=== PATIENT | female | born 1945 | race Caucasian/White ===

== ENCOUNTER 2019-07-06 03:03 | Emergency (ER) | payer MEDICARE, OTHER ==
[~2019-07-06] VITALS: Ht 165.1 cm; Wt 51.0 kg
--- NOTE | 2019-07-06 04:30 | NUR ---
Assumed care from [facility]. Pt. currently in bed, AOX4, resting comfortable. No needs at this time.
--- NOTE | 2019-07-06 04:34 | NUR ---
Pt. transferred to GI lab by GI woven label designer at this time.
[2019-07-06 04:40] VITALS: BP 127/80
[2019-07-06] MEDS ORDERED: MIDAZolam 5mg/5ml vial ONE (04:41)
[2019-07-06] MEDS ORDERED: fentaNYL/PF 50MCG/1 ML 2ML syringe ONE (04:41)
[2019-07-06 05:32] VITALS: BP 162/66
[2019-07-06] MEDS ORDERED: epiNEPHrine 0.1mg/ml 10ml syringe ONE (05:35)
[2019-07-06 05:42] VITALS: BP 95/53
[2019-07-06 05:52] VITALS: BP 109/51
--- NOTE | 2019-07-06 05:58 | NUR ---
Called family at this time and spoke with Jack to arrange ride back home. Per Jack, she will call pt's son to provide transport for pt.
[2019-07-06 06:02] VITALS: BP 109/45
--- NOTE | 2019-07-06 06:19 | NUR ---
Pt. back to ED room 3 at this time. She is AOX4 with mild lethargy from post sedation/procedure. GI intervention teacher to give full report.
--- NOTE | 2019-07-06 06:22 | NUR ---
Called son "Lucian" re pt and need for transportation back home. Per son, he will be in the ED department in within the next 15 mins.
[2019-07-06 06:30] LABS: BASOPHILS # (AUTO) 0.1 X10'3 (0-0.2); BASOPHILS % (AUTO) 0.5 % (0-1); EOSINOPHILS % (AUTO) 0.3 % (0-6); HEMOGLOBIN 11.9 g/dl (12.0-16.0); LYMPHOCYTES # (AUTO) 1.7 X10'3 (1.1-4.8); LYMPHOCYTES % (AUTO) 15.7 % (21-51); MEAN CORPUSCULAR HEMOGLOBIN 30.2 PG (27.0-31.0); MEAN CORPUSCULAR VOLUME 91.4 FL (78-98); MEAN PLATELET VOLUME 7.1 FL (7.4-10.4); MONOCYTES # (AUTO) 0.7 X10'3 (0-0.9); MONOCYTES % (AUTO) 6.6 % (2-12); NEUTROPHILS # (AUTO) 8.3 X10'3 (1.8-7.7); NEUTROPHILS % (AUTO) 76.9 % (42-75); PLATELET COUNT 234 X10'3 (140-440); RED BLOOD COUNT 3.94 X10'6 (4.20-5.60); RED CELL DISTRIBUTION WIDTH 14.5 % (11.5-14.5); WHITE BLOOD COUNT 10.8 X10'3 (4.5-11.0)
[2019-07-06 06:41] LABS: ALANINE AMINOTRANSFERASE 24 U/L (12-78); ALBUMIN/GLOBULIN RATIO 0.7 (1.1-1.5); ALKALINE PHOSPHATASE 55 IU/L (46-116); ANION GAP 10 (8-16); ASPARTATE AMINO TRANSFERASE 31 U/L (10-37); BILIRUBIN,TOTAL 0.3 MG/DL (0.1-1.0); BLOOD UREA NITROGEN 14 MG/DL (7-18); BUN/CREATININE RATIO 13.1 (6.6-38.0); CALCIUM 8.7 MG/DL (8.5-10.1); CHLORIDE 105 MMOL/L (99-107); CREATININE 1.07 MG/DL (0.40-0.90); GLUCOSE 193 MG/DL (70-104); SODIUM 139 MMOL/L (135-145); TOTAL CARBON DIOXIDE 24.3 MMOL/L (24-32); TOTAL PROTEIN 7.1 G/DL (6.4-8.2); eGFR 50 ML/MIN
[2019-07-06 06:50] LABS: % IRON SATURATION 33 % (11-46); IRON 70 UG/DL (49-151); TOTAL IRON BINDING CAPACITY 212 UG/DL (259-388)
--- NOTE | 2019-07-06 06:53 | NUR ---
Dr. Baker at bedside.
[2019-07-06 06:59] LABS: FERRITIN 115 NG/ML (8-252)
[2019-07-06 07:27] VITALS: BP 114/54
== END 2019-07-06 07:31 | disposition home or self-care (01) ==
LOC: ER 03:04
DX: T17.298A Other foreign object in pharynx causing other injury, initial encounter (principal); J44.9 Chronic obstructive pulmonary disease, unspecified; F32.9 Major depressive disorder, single episode, unspecified; Z98.890 Other specified postprocedural states; Z90.710 Acquired absence of both cervix and uterus; Z60.2 Problems related to living alone; W22.8XXA Striking against or struck by other objects, initial encounter; Y93.89 Activity, other specified; Y92.89 Other specified places as the place of occurrence of the external cause; Y99.8 Other external cause status
CPT/HCPCS: 36415; 43227; 43236; 43247; 43248; 43255; 70360; 71045; 80053; 82728; 83540; 83550; 85025; 85610; 99152; 99153; 99285; J0171; J2250; J3010; J7040; 99284; A4620

== ENCOUNTER 2024-05-02 08:38 | Outpatient (CLI) | payer MEDICARE, OTHER ==
[~2024-05-02 08:38] MED LIST: iohexol 350 MG/ML 50ML vial IV ONE; iohexol 350MG/ML 100ml bottle IV ONE
[2024-05-02 09:27] LABS: ALBUMIN 3.3 G/DL (3.4-5.0); ANION GAP 5 (8-16); BLOOD UREA NITROGEN 18 MG/DL (7-18); CALCIUM 8.5 MG/DL (8.5-10.1); CHLORIDE 99 MMOL/L (99-107); GLUCOSE 77 MG/DL (70-104); POTASSIUM 4.8 MMOL/L (3.5-5.1); SODIUM 135 MMOL/L (135-145); TOTAL CARBON DIOXIDE 31.4 MMOL/L (24-32); eGFR 43 ML/MIN
== END 2024-05-02 23:59 | disposition home or self-care (01) ==
LOC: RAD 08:38
PROVIDERS: ATTEND Surgery
DX: I73.9 Peripheral vascular disease, unspecified (principal); K86.89 Other specified diseases of pancreas; I65.21 Occlusion and stenosis of right carotid artery; J43.9 Emphysema, unspecified; J84.10 Pulmonary fibrosis, unspecified; N28.89 Other specified disorders of kidney and ureter; M48.061 Spinal stenosis, lumbar region without neurogenic claudication; M48.56XA Collapsed vertebra, not elsewhere classified, lumbar region, initial encounter for fracture
CPT/HCPCS: 36415; 75635; 80048; Q9967

== ENCOUNTER 2024-07-17 12:26 | Outpatient (CLI) | payer MEDICARE, OTHER | END 2024-07-17 23:59 | disposition home or self-care (01) | LOC: MRI02 12:26 | PROVIDERS: ATTEND Anesthesiology | DX: S22.050A Wedge compression fracture of T5-T6 vertebra, initial encounter for closed fracture (principal); M51.34 Other intervertebral disc degeneration, thoracic region; X58.XXXA Exposure to other specified factors, initial encounter; Y93.89 Activity, other specified; Y92.89 Other specified places as the place of occurrence of the external cause; Y99.8 Other external cause status | CPT/HCPCS: 72146 ==